=== PATIENT | female | born 1965 | race American Indian/Alaskan Native ===

== ENCOUNTER 2016-11-18 20:16 | Emergency (ER) | payer BC ==
[2016-11-18 21:59] VITALS: RESP 18
--- NOTE | 2016-11-18 22:10 | ED PDOC ---
Arrival/HPI <SujeyRigo - Last Filed: 11/18/16 23:49> - General Historian: Patient - History of Present Illness Time/Duration: Other (2 days) Symptom Course: Worsening Context: Home <Diamond Pacheco - Last Filed: 11/20/16 12:39> - General Time Seen by Provider: 11/18/16 20:33 - History of Present Illness Narrative History of Present Illness (Text): 11/18/16 22:08 This 51 yo female with a pmh myeloproliferative with polycythemia and thrombocytosis, presents to this ED c/o exacerbation left knee pain x 2 days. Patient stated left leg is mild swelling x 2 days. Patient denies trauma, sob, cp, weakness, paresthesias, calf pain, ankle pain, hip pain, or dizziness. (Diamond Pacheco) Past Medical History - Provider Review Nursing Documentation Reviewed: Yes <Diamond Pacheco - Last Filed: 11/20/16 12:39> Family/Social History - Physician Review Nursing Documentation Reviewed: Yes Family/Social History: No Known Family HX <Diamond Pacheco - Last Filed: 11/20/16 12:39> Allergies/Home Meds <SujeyRigo - Last Filed: 11/18/16 23:49> <Diamond Pacheco - Last Filed: 11/20/16 12:39> Allergies/Adverse Reactions: Allergies No Known Allergies Allergy (Verified 11/18/16 22:27) Review of Systems - Review of Systems Constitutional: Normal. absent: Fatigue, Weight Change, Fevers Eyes: Normal ENT: Normal Respiratory: Normal Cardiovascular: Normal Gastrointestinal: Normal Genitourinary Female: Normal Musculoskeletal: Other (Left lower leg swelling. Left knee pain) Skin: Normal Neurological: Normal Endocrine: Normal Hemo/Lymphatic: Normal Psychiatric: Normal <Diamond Pacheco P - Last Filed: 11/20/16 12:39> Physical Exam Temperature: Afebrile Blood Pressure: Normal Pulse: Regular Respiratory Rate: Normal Appearance: Positive for: Well-Appearing, Non-Toxic, Comfortable Pain Distress: None Mental Status: Positive for: Alert and Oriented X 3 - Systems Exam Head: Present: Atraumatic, Normocephalic Pupils: Present: PERRL Extroacular Muscles: Present: EOMI Conjunctiva: Present: Normal Mouth: Present: Moist Mucous Membranes Neck: Present: Normal Range of Motion Respiratory/Chest: Present: Clear to Auscultation, Good Air Exchange. No: Respiratory Distress, Accessory Muscle Use Cardiovascular: Present: Regular Rate and Rhythm, Normal S1, S2. No: Murmurs Abdomen: Present: Normal Bowel Sounds. No: Tenderness, Distention, Peritoneal Signs Back: Present: Normal Inspection Upper Extremity: Present: Normal Inspection, Normal ROM, NORMAL PULSES, Neurovascularly Intact, Capillary Refill < 2s. No: Cyanosis, Edema Lower Extremity: Present: Edema ((+) Trace edema left lower leg. No knee tenderness. No septic knee joint. No erythema, rash, or ecchymosis.), NORMAL PULSES, Normal ROM, Swelling, Neurovascularly Intact, Capillary Refill < 2 s, Other (Right lower leg is not swelling). No: CALF TENDERNESS, Claudine's Sign, Tenderness, Erythema, Deformity, Temperature Abnormalties Neurological: Present: GCS=15, CN II-XII Intact, Speech Normal Skin: Present: Warm, Dry, Normal Color. No: Rashes Psychiatric: Present: Alert, Oriented x 3 <Diamond Pacheco - Last Filed: 11/20/16 12:39> Vital Signs Temp Pulse Resp BP Pulse Ox 11/19/16 00:45 97.9 F 72 18 138/86 99 11/18/16 20:17 97.8 F 78 18 144/94 H 98 Medical Decision Making <Rigo Rm - Last Filed: 11/18/16 23:49> Re-evaluation Time: 00:31 Reassessment Condition: Re-examined, Improved <Diamond Pacheco - Last Filed: 11/20/16 12:39> ED Course and Treatment: 11/19/16 00:32 Re-evaluation. Patient feels better. Discussed results and plan with patient who expresses understanding. All questions answered and there is agreement with the plan to discharge home with instructions. Patient stable for discharge. Return if symptoms persist or worsen. Patient was recommended to have a repeat ultrasound of left lower extremity in 7 days.. To remove taina bandage at bedtime. (Diamond Pacheco) - RAD Interpretation Narrative RAD Interpretations (Text): 11/19/16 00:32 Knee x-rays: No Fx or sublux.. Mild djd. Normal soft tissue Venous Doppler Lower extremity: No DVT , as per Radiology note on PACS (Diamond Pacheco) Radiology Orders: 11/18/16 22:27 KNEE WITH PATELLA LEFT 3 VIEW [RAD] Stat 11/18/16 22:28 DUPLEX LOWER EXTRM VEIN LEFT [US] Stat - Medication Orders Current Medication Orders: Discontinued Medications Ketorolac Tromethamine (Toradol) 15 mg IM STAT STA Stop: 11/19/16 00:32 Last Admin: 11/19/16 00:53 Dose: 15 mg - PA / MANAGER E [employer] / Resident Statement / has reviewed & agrees with the documentation as recorded. <Rigo Rm - Last Filed: 11/18/16 23:49> Disposition/Present on Arrival <Rigo Rm - Last Filed: 11/18/16 23:49> - Present on Arrival Any Indicators Present on Arrival: No History of DVT/PE: No History of Uncontrolled Diabetes: No Urinary Catheter: No History of Decub. Ulcer: No - Disposition Have Diagnosis and Disposition been Completed?: Yes Disposition Time: 00:32 Patient Plan: Discharge <Diamond Pacheco - Last Filed: 11/20/16 12:39> - Disposition Diagnosis: Knee pain, Osteoarthritis Disposition: HOME/ ROUTINE Condition: GOOD Discharge Instructions (ExitCare): Knee Pain (ED) Additional Instructions: Call private doctor for follow up visit in 1-2 days. Keep knee elevated, ice , rest, taina bandage. Remove taina bandage at bedtime. Call orthopedist if pain persist. Return to emergency if pain worsen, or if knee gets red, or rash. If leg swelling persist, have a repeat ultrasound of left leg in 7 days. Prescriptions: Famotidine [Pepcid] 40 mg PO DAILY #10 tablet Naproxen 500 mg PO BID #14 tab Referrals: PCP,NO [Primary Care Provider] - Follow up with primary Addy Villa DO [Staff Provider] - Follow up with primary Forms: [employer] Visits Discharge ([place]), WORK NOTE
[2016-11-18 22:27] VITALS: BMI 37.0
[2016-11-19 01:02] VITALS: BP 138/86; PULSE 72; TEMP 97.9; O2SAT 99
--- NOTE | 2016-11-19 07:43 | RAD ---
PROCEDURE: Left Knee Radiographs. HISTORY: Pain. COMPARISON: None. FINDINGS: BONES: Normal. No fracture. JOINTS: [id number] osteoarthritis JOINT EFFUSION: None. OTHER FINDINGS: None. IMPRESSION: [id number] osteoarthritis.
--- NOTE | 2016-11-19 10:23 | US ---
PROCEDURE: Left lower extremity venous US HISTORY: Leg pain and swelling. Evaluate for DVT. PHYSICIAN(S): Diogo Pacheco MD. TECHNIQUE: Duplex sonography and color-flow Doppler with graded compression were used to evaluate the deep venous system of the left lower extremity. FINDINGS: The visualized deep venous system of the left lower extremity is sonographically normal and compressible. Normal wave forms and augmentation are seen. There is no sonographic evidence for deep venous thrombosis in the visualized segments of the left lower extremity. IMPRESSION: 1. No sonographic evidence for deep venous thrombosis in the visualized segments of the left lower extremity.
== END 2016-11-19 00:55 | disposition home or self-care (01) ==
LOC: ED 20:16
DX: M17.12 Unilateral primary osteoarthritis, left knee (principal); M25.562 Pain in left knee
CPT/HCPCS: 73562; 93971; 96372; 99285; J1885

== ENCOUNTER 2018-08-03 00:59 | Emergency (ER) | payer OTHER ==
[2018-08-03 01:00] VITALS: BMI 37.0
--- NOTE | 2018-08-03 02:12 | ED PDOC ---
Arrival/HPI - General Chief Complaint: Hip Pain Time Seen by Provider: 08/03/18 01:36 Historian: Patient - History of Present Illness Narrative History of Present Illness (Text): 08/03/18 02:08 A 53 year old female, whose past medical history includes myeloproliferative with polycythemia and thrombocytosis, presents to the emergency department with a complaint of left hip pain radiating down her left leg. The patient reports difficulty sleeping secondary to discomfort. Patient denies trauma/injury, fevers, chills, headache, dizziness, chest pain, shortness of breath, dyspnea on exertion, cough, abdominal pain, nausea, vomiting, diarrhea, back pain, neck pain, urinary/bowel changes, or any other complaint. Time/Duration: Other (Today) Symptom Onset: Sudden Symptom Course: Unchanged Activities at Onset: Rest, Light Context: Home Past Medical History - Provider Review Nursing Documentation Reviewed: Yes - Infectious Disease Hx of Infectious Diseases: None - Hematological/Oncological Hx Cancer: Yes (myeloproliferative syndrome) Other/Comment: polycthemia and thrombocytosis - Psychiatric Hx Substance Use: No - Surgical History Other/Comment: breast reduction - Anesthesia Hx Anesthesia: Yes Hx Anesthesia Reactions: No Hx Malignant Hyperthermia: No Family/Social History - Physician Review Nursing Documentation Reviewed: Yes Family/Social History: No Known Family HX Smoking Status: Never Smoked Hx Alcohol Use: No Hx Substance Use: No Allergies/Home Meds Allergies/Adverse Reactions: Allergies No Known Allergies Allergy (Verified 11/18/16 22:27) Review of Systems - Physician Review All systems were reviewed & negative as marked: Yes - Review of Systems Constitutional: absent: Fevers Respiratory: absent: SOB, Cough Cardiovascular: absent: Chest Pain, MCINTYRE Gastrointestinal: absent: Abdominal Pain, Stool Changes, Diarrhea, Nausea, Vomiting Genitourinary Female: absent: Urine Output Changes Musculoskeletal: Other (Left hip pain). absent: Back Pain, Neck Pain Neurological: absent: Headache, Dizziness Physical Exam Vital Signs Reviewed: Yes Vital Signs Pulse Resp BP Pulse Ox 08/03/18 01:23 71 16 122/88 98 Temperature: Afebrile Blood Pressure: Normal Pulse: Regular Respiratory Rate: Normal Appearance: Positive for: Well-Appearing, Non-Toxic, Comfortable Pain Distress: None Mental Status: Positive for: Alert and Oriented X 3 - Systems Exam Head: Present: Atraumatic, Normocephalic Pupils: Present: PERRL Extroacular Muscles: Present: EOMI Conjunctiva: Present: Normal Mouth: Present: Moist Mucous Membranes Neck: Present: Normal Range of Motion Respiratory/Chest: Present: Clear to Auscultation, Good Air Exchange. No: Respiratory Distress, Accessory Muscle Use Cardiovascular: Present: Regular Rate and Rhythm, Normal S1, S2. No: Murmurs Abdomen: No: Tenderness, Distention, Peritoneal Signs Back: Present: Normal Inspection Upper Extremity: Present: Normal Inspection. No: Cyanosis, Edema Lower Extremity: Present: Normal Inspection, Normal ROM (No pain with abduction or rotation of the left hip. ). No: Edema Neurological: Present: GCS=15, CN II-XII Intact, Speech Normal Skin: Present: Warm, Dry, Normal Color. No: Rashes Psychiatric: Present: Alert, Oriented x 3, Normal Insight, Normal Concentration Medical Decision Making ED Course and Treatment: 08/03/18 02:13 Impression: A 53 year old female presents to the emergency department with a complaint of left hip pain radiating down her leg. Plan: -- Toradol -- Reassess and disposition Prior Visits: Notes and results from previous visits were reviewed. Progress Notes: - Medication Orders Current Medication Orders: Discontinued Medications Ketorolac Tromethamine (Toradol) 30 mg IM STAT STA Stop: 08/03/18 01:48 - Scribe Statement The provider has reviewed the documentation as recorded by the Mikeibstefany Saldivar Provider Scribe Attestation: All medical record entries made by the Scribe were at my direction and personally dictated by me. I have reviewed the chart and agree that the record accurately reflects my personal performance of the history, physical exam, medical decision making, and the department course for this patient. I have also personally directed, reviewed, and agree with the discharge instructions and disposition. Disposition/Present on Arrival - Present on Arrival Any Indicators Present on Arrival: No History of DVT/PE: No History of Uncontrolled Diabetes: No Urinary Catheter: No History of Decub. Ulcer: No History Surgical Site Infection Following: None - Disposition Have Diagnosis and Disposition been Completed?: Yes Diagnosis: Sciatica Disposition: HOME/ ROUTINE Disposition Time: 03:55 Condition: IMPROVED Discharge Instructions (ExitCare): Sciatica Prescriptions: Tramadol HCl [Ultram] 50 mg PO QID #12 tab Referrals: Gumaro Barnett NP [Primary Care Provider] - Follow up with primary Forms: [employer] ([place])
[2018-08-03 04:05] VITALS: BP 126/68; PULSE 70; RESP 18; O2SAT 99
== END 2018-08-03 03:54 | disposition home or self-care (01) ==
LOC: ED 00:59
DX: M54.30 Sciatica, unspecified side (principal)
CPT/HCPCS: 96372; 99283; J1885